=== PATIENT | female | born 1985 | race Caucasian/White ===

== ENCOUNTER 2017-05-13 02:51 | Inpatient (IN) ==
[2017-05-13] MEDS ORDERED: LACTATED RINGERS 500 ML IV PRN (03:00)
[2017-05-13] MEDS ORDERED: OXYTOCIN/LR 20 UNIT/1,000 ML BAG IV SCH (03:00)
[2017-05-13] MEDS ORDERED: ONDANSETRON 4 MG/2 ML VIAL IV PRN (03:00)
[2017-05-13] MEDS ORDERED: MEPERIDINE 50 MG/1 ML VIAL IV PRN (03:00)
[2017-05-13] MEDS ORDERED: BUTORPHANOL 2 MG/ML VIAL IV PRN (03:00)
[2017-05-13] MEDS: LACTATED RINGERS 1,000 ML IV SCH ×2 (03:51→04:36)
[2017-05-13] MEDS: AMPICILLIN INJ 2,000 MG in SODIUM CHLORIDE 0.9% 50 ML IV SCH ×2 (04:50→10:28)
[2017-05-13 05:26] LABS: Basophils % 0.3 % (0.0-0.8); Eosinophils # 0.1 10*3/uL (0.0-0.87); Eosinophils % 0.7 % (0.00-10.9); Hematocrit 30.9 VOL% (35.7-47.0); Hemoglobin 10.7 GM/DL (12.0-16.0); Immature Granulocytes % 0.7 %; Immature Granulocytes Absolute 0.08 #; Mean Corpuscular HGB Conc 34.6 GM/DL (32-36); Mean Corpuscular Hemoglobin 30 PG (27-34); Mean Corpuscular Volume 87.8 FL (87-102); Monocytes # 0.8 10*3/uL (0.11-0.8); Monocytes % 6.6 % (1.7-12.7); Neutrophils # 8.6 10*3/uL (1.4-7.4); Neutrophils % 74.7 % (38.7-73.9); Platelet Count 176 T/CUMM (130-400); Red Blood Count 3.52 MC/CUMM (3.8-5.5); Red Cell Distribution Width 14.3 % (9.3-17.3); White Blood Count 11.5 T/CUMM (4-12)
[2017-05-13 05:52] LABS: Albumin 2.6 G/DL (3.4-5.0); Bilirubin,Total 0.7 MG/DL (0.2-1.0); Calcium 8.4 MG/DL (8.5-10.1); Osmolality,Calculated 276.4 MOS/KG (273-304); Potassium 3.5 MMOL/L (3.5-5.1); Total Protein 5.5 G/DL (6.4-8.3)
[2017-05-13] MEDS ORDERED: CITRIC ACID/SODIUM CITRATE 30 ML UDCUP PO ONE (07:26)
[2017-05-13] MEDS ORDERED: PROMETHAZINE 25 MG/1 ML VIAL IM ONE (07:26)
[2017-05-13] MEDS ORDERED: ePHEDrine 50 MG/ML AMP IV PRN ×2 (07:26)
[2017-05-13] MEDS ORDERED: fentaNYL 2 MCG/ROPIV 0.2% EPID 150 ML EPIDURAL SCH (07:26)
[2017-05-13] MEDS ORDERED: hydrOXYzine HCL 25 MG/1 ML VIAL IM PRN (07:26)
[2017-05-13] MEDS ORDERED: diphenhydrAMINE 50 MG/1 ML VIAL IV PRN ×2 (07:26)
[2017-05-13] MEDS ORDERED: FAMOTIDINE 20 MG/2 ML VIAL IV ONE (07:26)
[2017-05-13] MEDS ORDERED: miSOPROStol 200 MCG TABLET ONE (10:01)
[2017-05-13] MEDS ORDERED: METHYLERGONOVINE 0.2 MG/1 ML AMP ONE (10:02)
[2017-05-13 12:15] LABS: Cord Venous Blood HCO3 22.7 MMOL/L; Cord Venous Blood PCO2 39.4 MMHG; Cord Venous Blood PO2 38.6 MMHG
[2017-05-13] MEDS ORDERED: ACETAMINOPHEN/CODEINE 300-30 MG TABLET PO PRN (13:24)
[2017-05-13] MEDS ORDERED: oxyCODONE/ACETAMINOPHEN 5-325 MG TABLET PO PRN ×2 (15:31)
[2017-05-13] MEDS ORDERED: HYDROCORTISONE 2.5% RECTAL CREAM 30 GM TUBE TOP PRN (15:31)
[2017-05-13] MEDS ORDERED: RHO(D) IMMUNE GLOBULIN 300 MCG SYRINGE IM ONE (15:31)
[2017-05-13] MEDS ORDERED: LANOLIN 50% CREAM 0.3 OZ TUBE TOP PRN (15:31)
[2017-05-13] MEDS ORDERED: BENZOCAINE 20%/MENTHOL 0.5% SPRAY 56 GM CAN TOP PRN (15:31)
[2017-05-13] MEDS ORDERED: DIPH/TET/ACEL PERT BOOSTER VACCINE 0.5 ML VIAL IM ONE (15:31)
[2017-05-13] MEDS ORDERED: BISACODYL 10 MG SUPP RECTAL PRN (15:31)
[2017-05-13] MEDS ORDERED: ACETAMINOPHEN 325 MG TABLET PO PRN (15:31)
[2017-05-13] MEDS ORDERED: MEASLES/MUMPS/RUBELLA VACCINE 0.5 ML VIAL SUBCUT ONE (15:31)
[2017-05-13] MEDS ORDERED: WITCH HAZEL PADS 100/JAR TOP PRN (15:31)
[2017-05-13] MEDS ORDERED: OXYTOCIN/LR 20 UNIT/1,000 ML BAG IV ONE (15:35)
[2017-05-13] MEDS: IBUPROFEN 800 MG TABLET PO PRN (19:36)
[2017-05-13] MEDS: DOCUSATE SODIUM 100 MG CAPSULE PO SCH (21:05)
[2017-05-14] MEDS: IBUPROFEN 800 MG TABLET PO PRN ×2 (04:47→16:53)
[2017-05-14 06:02] LABS: Basophils % 0.3 % (0.0-0.8); Eosinophils # 0.3 10*3/uL (0.0-0.87); Eosinophils % 2.2 % (0.00-10.9); Hematocrit 31.9 VOL% (35.7-47.0); Hemoglobin 10.8 GM/DL (12.0-16.0); Immature Granulocytes % 0.6 %; Immature Granulocytes Absolute 0.07 #; Lymphocytes % 16.4 % (21.3-54.2); Mean Corpuscular HGB Conc 33.9 GM/DL (32-36); Mean Corpuscular Hemoglobin 30 PG (27-34); Mean Corpuscular Volume 89.9 FL (87-102); Mean Platelet Volume 9.9 FL (9.6-12.0); Monocytes # 0.8 10*3/uL (0.11-0.8); Monocytes % 6.3 % (1.7-12.7); Neutrophils # 8.9 10*3/uL (1.4-7.4); Neutrophils % 74.2 % (38.7-73.9); Platelet Count 149 T/CUMM (130-400); Red Blood Count 3.55 MC/CUMM (3.8-5.5); Red Cell Distribution Width 14.1 % (9.3-17.3); White Blood Count 11.9 T/CUMM (4-12)
[2017-05-14] MEDS: DOCUSATE SODIUM 100 MG CAPSULE PO SCH ×2 (08:17→20:54)
[2017-05-15] MEDS: IBUPROFEN 800 MG TABLET PO PRN (00:16)
[2017-05-15] MEDS ORDERED: MAGNESIUM HYDROXIDE SUSP 30 ML UDCUP PO PRN (00:24)
[2017-05-15 08:23] VITALS: BP 107/68
[2017-05-15] MEDS: DOCUSATE SODIUM 100 MG CAPSULE PO SCH (08:44)
== END 2017-05-15 12:45 | disposition home or self-care (01) | DRG 775 ==
LOC: N.LDOUT 02:51 → N.LD 02:53 → N.OB 15:10
PROVIDERS: ADMIT Obstetrics & Gynecology; ATTEND Obstetrics & Gynecology